=== PATIENT | male | born 1990 | race Caucasian/White ===

== ENCOUNTER 2019-12-30 08:30 | Inpatient (IN) | payer BC ==
[~2019-12-30] VITALS: Ht 182.9 cm; Wt 138.8 kg
--- NOTE | 2019-12-30 08:47 | NUR ---
PT BIB SELF, C/O MID CHEST " DULL " PAIN RADIATING TO BOTH JAWS & LEFT ARM. STARTED YESTERDAY & WOKE UP WITH IT THIS AM @ 0800. PT SEEN & EVAL'D BY DR. GRANT. PLACED ON DATABASE DEVELOPER, SR. WILL CONT TO MONITOR.
[2019-12-30 08:52] LABS: BASOPHILS % (AUTO) 0.4 % (0.0-2.0); EOSINOPHILS % (AUTO) 3.4 % (0.0-6.0); HEMATOCRIT 50 % (39-51); HEMOGLOBIN 17.3 g/dL (13.5-17.5); LYMPHOCYTES % (AUTO) 43.7 % (20.0-44.0); MEAN CORPUSCULAR HGB CONC 35 g/dl (31.0-36.0); MEAN CORPUSCULAR VOLUME 78 fL (80-96); MONOCYTES # (AUTO) 0.9 /CMM (0.1-1.30); MONOCYTES % (AUTO) 7.6 % (2.0-12.0); NEUTROPHILS # (AUTO) 5.1 /CMM (1.8-8.9); NEUTROPHILS % (AUTO) 44.9 % (43.0-81.0); PLATELET COUNT (AUTO) 334 /CMM (150-450); RED BLOOD CELL COUNT(AUTO) 6.35 MIL/uL (4.5-6.0); WHITE BLOOD COUNT (AUTO) 11.4 K/uL (4.3-11.0)
[2019-12-30] MEDS ORDERED: ASPIRIN 81 MG TAB.CHEW PO ONE (09:00)
[2019-12-30] MEDS ORDERED: NITROGLYCERIN 0.4 MG/TAB BOTTLE SL ONE (09:00)
[2019-12-30] MEDS ORDERED: NITROGLYCERIN 0.4 MG/TAB BOTTLE ONE (09:01)
[2019-12-30] MEDS ORDERED: ASPIRIN 81 MG TAB.CHEW ONE (09:01)
--- NOTE | 2019-12-30 09:05 | NUR ---
MEDICATED PER ERMD ORDER, PT MAN WELL.
--- NOTE | 2019-12-30 09:30 | NUR ---
PT RESTING EYES CLOSED, EASILY AWAKEN BY VERBAL STIMULI. PT STS CP 08/27, DR. GRANT AWARE. DENIES SOB, DIZZINESS, N/V AT THIS TIME. WILL CONT TO MONITOR.
[2019-12-30 09:49] LABS: ALBUMIN 3.6 g/dL (3.4-5.0); ALKALINE PHOSPHATASE 71 U/L (46-116); BILIRUBIN,TOTAL 0.3 mg/dL (0.2-1.0); CALCIUM, SERUM 9.6 mg/dL (8.5-10.1); CARBON DIOXIDE 15 mmol/L (21-32); CHLORIDE 103 mmol/L (98-107); CREATININE 0.7 mg/dL (0.6-1.3); GLUCOSE 119 mg/dL (74-106); POTASSIUM 4.2 mmol/L (3.5-5.1); SODIUM SERUM 137 mmol/L (136-145); TOTAL PROTEIN, SERUM 7.7 g/dL (6.4-8.2); UREA NITROGEN, BLOOD 11 mg/dL (7-18)
[2019-12-30 10:07] LABS: ALANINE AMINOTRANSFERASE 72 U/L (12-78)
[2019-12-30 10:08] LABS: ASPARTATE AMINOTRANSFERASE 143 U/L (15-37)
[2019-12-30] MEDS ORDERED: MAG HYDROX/AL HYDROX/SIMETH 30 ML UDC ONE (10:21)
[2019-12-30] MEDS ORDERED: LIDOCAINE VISCOUS 2% UD 15 ML UDC ONE (10:21)
[2019-12-30] MEDS ORDERED: MAG HYDROX/AL HYDROX/SIMETH 30 ML UDC PO ONE (10:30)
[2019-12-30] MEDS ORDERED: LIDOCAINE VISCOUS 2% UD 15 ML UDC MM ONE (10:30)
--- NOTE | 2019-12-30 11:15 | NUR ---
PT SITTING UP, STS CP 3/10 & MAN WELL. WILL CONT TO MONITOR.
[2019-12-30] MEDS ORDERED: IOHEXOL-350 100 ML VIAL IV ONE (12:39)
[2019-12-30] MEDS ORDERED: IV NS 0.9% 250 ML IV ONE (12:40)
--- NOTE | 2019-12-30 13:19 | NUR ---
CALLED JOHANNA KEVIN
--- NOTE | 2019-12-30 14:30 | NUR ---
PT RESTING EYES CLOSED, EASILY AWAKEN BY VERBAL STIMULI. PT STS CP 2/10 & MAN WELL. DENIES SOB, DIZZINESS, JAW, NECK, ARM PAIN @ THIS TIME. TELE NSR, NO ECTOPY NOTED. WILL CONT MONITOR.
[2019-12-30] MEDS ORDERED: NITROGLYCERIN 0.4 MG/TAB BOTTLE SL PRN (16:30)
[2019-12-30] MEDS ORDERED: MORPHINE SULFATE INJ 2 MG/ML DISP.SYRIN IV PRN (16:30)
--- NOTE | 2019-12-30 16:54 | NUR ---
BED 321.
--- NOTE | 2019-12-30 17:03 | NUR ---
REPORT GIVEN TO JUSTIN JOHNSON
--- NOTE | 2019-12-30 17:30 | NUR ---
CALLED DR. SPENCER, REPORTED CRITICAL VALUE: TROPONIN 1.54. PER DR SPENCER TO CALL DR. CABELLO FOR CARDIOLOGY CONSULT.
--- NOTE | 2019-12-30 17:38 | NUR ---
SPOKE TO DR. CABELLO & T.O. TO GIVE FULL DOSE OF LOVENOX. JUSTIN JOHNSON & LAKISHA SALAZAR RN MADE AWARE & PLACED THE ORDER.
[2019-12-30 17:50] VITALS: BP 132/81
[2019-12-30] MEDS: ENOXAPARIN SODIUM 100 MG/ML DISP.SYRIN SQ SCH (18:17)
--- NOTE | 2019-12-30 18:29 | NUR ---
SUPERVISOR BAKERY [employer]ITATION ADMITTING NOTES PT ADMITTED TO UNIT [facility] AT 1740 ACCOMPANIED BY NURSE TY. PT ABLE TO AMBULATE SELF IN STEADY GAIT. A/O X4, ABLE TO MAKE NEEDS KNOWN WITH NO C/O CHEST PAIN OR ANY DISCOMFORTS AT THIS TIME. ORIENTED TO UNIT/ROOM AND VERBALIZED UNDERSTANDING. PT WITH ADMITTING DIAGNOSIS OF CHEST PAIN. ON ROOM AIR, BREATHING EVEN AND UNLABORED. V/S TAKEN, STABLE AND RECORDED. PT NOTED WITH SKIN INTACT. IV ACCESS NOTED ON RFA G#18 INTACT AND PATENT. LUNGS CLEAR ON AUSCULTATION. ABDOMEN SOFT, NON-TENDER WITH POSITIVE BOWELS SOUNDS ON FOUR QUADRANTS. PT PLACED ON TELE-MONITORING WITH CURRENT READING OF SR WITH HR OF 84. SAFETY MEASURES INITIATED: BED PLACED ON LOWEST LOCKED POSITION WITH SIDE-RAILS UP X2. CALL LIGHT PLACED WITHIN EASY REACH OF PT. WILL ENDORSE TO STRICKLER ATTENDANT NURSE FOR CHRISTINE.
--- NOTE | 2019-12-30 19:42 | NUR ---
RN OPENING NOTES PATIENT RECEIVED RESTING IN BED A/O X 4. STABLE ON RA WITH BREATHING EVEN AND UNLABORED, NO SOB NOTED. NO SIGNS OF ACUTE DISTRESS. NO COMPLAINTS OF PAIN OR DISCOMFORT AT THE MOMENT. TELE MONITOR READING SR. TALAMANTES LOCATED ON RFA #18 SL. SAFETY PRECAUTIONS IN PLACE WITH BED IN LOWEST POSITION, CALL LIGHT WITHIN REACH, BREAKS ON, SIDE RAILS UP. WILL CONTINUE TO MONITOR THROUGHOUT THE NIGHT.
[2019-12-30 20:00] VITALS: BP 129/70
--- NOTE | 2019-12-30 21:09 | NUR ---
RN NOTES CONSENT ATTAINED FOR CTA
[2019-12-31] VITALS (13 sets, daily range): BP systolic 118–153; BP diastolic 62–89
--- NOTE | 2019-12-31 02:30 | NUR ---
RN NOTES LAB CALLED, WAS NOTIFIED TROPONIN IS 7.272. MD LAGUNAS NOTIFIED. AWAITING NEW ORDERS.
--- NOTE | 2019-12-31 02:44 | NUR ---
RN NOTES MD LAGUNAS NOTIFIED, NO NEW ORDERS MADE. WILL CONTINUE TO MONITOR. PATIENT RECEIVING LOVENOX 100MG Q12. NO SIGNS OF ACUTE DISTRESS, NO COMPLAINTS OF PAIN OR DISCOMFORT.
[2019-12-31] MEDS: ENOXAPARIN SODIUM 100 MG/ML DISP.SYRIN SQ SCH (05:20)
--- NOTE | 2019-12-31 06:55 | NUR ---
RN CLOSING NOTES PATIENT RESTING IN BED A/O X 4. STABLE ON RA WITH BREATHING EVEN AND UNLABORED, NO SOB NOTED. NO SIGNS OF ACUTE DISTRESS. NO COMPLAINTS OF PAIN OR DISCOMFORT AT THE MOMENT. TELE MONITOR READING . VINITA LOCATED ON RFA #18 SL. SAFETY PRECAUTIONS IN PLACE WITH BED IN LOWEST POSITION, CALL LIGHT WITHIN REACH, BREAKS ON, SIDE RAILS UP. ALL NEEDS ATTENDED TO. PATIENT KEPT NPO THROUGHOUT THE NIGHT. WILL ENDORSE TO ONCOMING SHIFT ABOUT CHRISTINE.
--- NOTE | 2019-12-31 07:34 | NUR ---
RN OPENING NOTES PATIENT IS A/O X 4 AWAKE, WITH NO SIGNS OF DISTRESS AND NO SOB IN ROOM AIR. IV R FA #18G INTACT SL. CURRENTLY NPO. NO COMPLAINTS OF PAIN AT THIS MOMENT. SAFETY MEASURES ARE APPLIED BED IS LOCKED IN LOW POSITION, SIDE RAILS UP X 2 FOR SAFETY. CALL LIGHT WITHIN REACH. WILL CONTINUE TO MONITOR.
[2019-12-31 07:35] LABS: BASOPHILS # (AUTO) 0.1 /CMM (0.0-0.2); BASOPHILS % (AUTO) 0.6 % (0.0-2.0); EOSINOPHILS % (AUTO) 2.1 % (0.0-6.0); HEMATOCRIT 47 % (39-51); HEMOGLOBIN 15.5 g/dL (13.5-17.5); LYMPHOCYTES # (AUTO) 3.3 /CMM (0.8-4.8); LYMPHOCYTES % (AUTO) 28.4 % (20.0-44.0); MEAN CORPUSCULAR HGB CONC 33 g/dl (31.0-36.0); MEAN CORPUSCULAR VOLUME 79 fL (80-96); MONOCYTES # (AUTO) 0.9 /CMM (0.1-1.30); MONOCYTES % (AUTO) 7.5 % (2.0-12.0); NEUTROPHILS # (AUTO) 7.2 /CMM (1.8-8.9); NEUTROPHILS % (AUTO) 61.4 % (43.0-81.0); PLATELET COUNT (AUTO) 281 /CMM (150-450); RED BLOOD CELL COUNT(AUTO) 6.02 MIL/uL (4.5-6.0); WHITE BLOOD COUNT (AUTO) 11.7 K/uL (4.3-11.0)
[2019-12-31 08:47] LABS: CREATININE 0.9 mg/dL (0.6-1.3); PHOSPHORUS 4.7 mg/dL (2.5-4.9); POTASSIUM 3.7 mmol/L (3.5-5.1)
[2019-12-31] MEDS ORDERED: SECONDARY IV SET 1 EA INFUS.SET MC ONE (08:50)
[2019-12-31] MEDS ORDERED: IV NS 0.9% 0 ML ONE (08:50)
[2019-12-31] MEDS ORDERED: IODIXANOL 150 ML IV ONE (08:51)
[2019-12-31] MEDS ORDERED: VERAPAMIL HCL IV 5 MG/2 ML VIAL ONE ×2 (08:52→11:21)
[2019-12-31] MEDS ORDERED: NITROGLYCERIN ICAR 1,000 MCG/10 ML VIAL ICAR ONE ×2 (08:53→11:21)
[2019-12-31] MEDS ORDERED: LIDOCAINE HCL/PF 1% 30 ML SDV ONE ×2 (08:53→11:21)
[2019-12-31] MEDS: ATORVASTATIN 40 MG TABLET PO SCH (09:00)
[2019-12-31] MEDS: ASPIRIN 81 MG TAB.CHEW PO SCH (09:00)
[2019-12-31] MEDS ORDERED: IV NS 0.9% 1,000 ML ONE (11:20)
[2019-12-31] MEDS ORDERED: IV SET PRIMARY PUMP SET 1 EA INFUS.SET MC ONE (11:20)
[2019-12-31] MEDS ORDERED: HEPARIN SODIUM, PORCINE 1,000 UNIT/ML VIAL ONE (11:23)
[2019-12-31] MEDS ORDERED: IV NS 0.9% 50 ML IV ONE (11:24)
[2019-12-31] MEDS ORDERED: FENTANYL PF 100MCG/2ML AMPUL ONE (11:46)
[2019-12-31] MEDS ORDERED: MIDAZOLAM HCL 2 MG/2ML VIAL ONE (11:46)
[2019-12-31] MEDS ORDERED: TIROFIBAN-0.9% SODIUM CHLORIDE 100 ML IV ONE (12:22)
[2019-12-31] MEDS ORDERED: IV NS 0.9% 250 ML IV ONE (12:33)
--- NOTE | 2019-12-31 12:40 | NUR ---
PATIENT VITALS ARE WITHIN NORMAL LIMITS A/O X 4. CONSENT WAS VERIFIED. LEFT TO UNCLAIMED PROPERTY MANAGER FOR PROCEDURE VIA [employer].
[2019-12-31] MEDS: TIROFIBAN IV SCH ×2 (13:15→22:13)
[2019-12-31] MEDS: SODIUM CHLORIDE IV SCH ×2 (13:15→22:13)
[2019-12-31] MEDS: [UNRECOGNIZED DRUG - OTHER] IV SCH ×2 (13:15→22:13)
--- NOTE | 2019-12-31 13:26 | NUR ---
INGREDIENT HANDLER NOTE RECEIVED REPORT FROM SUMATRA OPENER NURSE RAGHU. RECEIVED PATIENT VIA BED. PATIENT A/OX4, DENIES SOB, DENIES CHEST PAIN AT THIS TIME. ON ROOM AIR. SKIN WARM AND DRY TO TOUCH. PATIENT S/P CORONARY ANGIOGRAM WITH RIGHT WRIST TR BAND. PATIENT ABLE TO MOVE FINGERS, CAPILLARY REFILL PRESENT. DENIES PAIN OR NUMBNESS IN THE AREA. PATIENT RECEIVING AGGRASTAT DRIP AT 18ML/HR. ON TELE MONITOR SR. PER REPORT PATIENT IS BEING TRANSFERRED TO [facility] [place], KEEP AGGRASTAT RUNNING FOR 18HRS AND LEAVE TR BAND ON. PATIENT IS NPO. BELONGINGS BROUGHT TO PATIENT FROM 3W. PATIENT AWARE OF PLAN. ORIENTED TO ROOM AND CALL LIGHT SYSTEM, PATIENT IS APPRECIATIVE AND VERBALIZED UNDERSTANDING. SIDE RAILS UP AND LOCKED. BED KEPT AT LOWEST POSITION. CALL LIGHT KEPT IN HAND. WILL CONTINUE TO MONITOR.
--- NOTE | 2019-12-31 13:42 | NUR ---
PATIENT GOT TRANSFERRED TO ICU AFTER PROCEDURE.
--- NOTE | 2019-12-31 13:56 | NUR ---
HEAVY EQUIPMENT ENGINE MECHANIC NOTE RECEIVED CALL FROM DR BLANCHARD, RECEIVED TELEPHONE ORDER TO CONTINUE PATIENT ON AGGRASTAT DRIP, START DEFLATING TR BAND AT 1530 AND START HEPARIN DRIP PER [facility] PROTOCOL ONE HOUR AFTER TR BAND HAS BEEN REMOVED AND THERE IS NO BLEEDING OR COMPLICATIONS. D/C LOVENOX. NOTED, WILL CONTINUE TO MONITOR.
[2019-12-31] MEDS ORDERED: SODIUM CHLORIDE IV ONE (13:57)
[2019-12-31] MEDS ORDERED: TIROFIBAN IV ONE (13:57)
--- NOTE | 2019-12-31 15:58 | NUR ---
ROBOTIC MACHINE OPERATOR NOTE RECEIVED CALL FROM PHARMACY REGARDING AGGRASTAT RATE, PER PHARMACY MEDICATION SHOULD BE RUNNING AT 25ML/HR BASED ON PATIENT WEIGHT, INFORMED THERE IS A HARD STOP ON THE PUMP PREVENTING ME FROM RUNNING MORE THAT 18ML/HR. PER DEVIN RESTART PUMP AND RUN BASIC INFUSION AND INFUSE MEDICATION AT 25ML/HR. NOTED
[2019-12-31] MEDS ORDERED: HEPARIN SODIUM, PORCINE 5000 UNITS/1 ML VIAL SQ ONE (17:16)
--- NOTE | 2019-12-31 18:13 | NUR ---
CARE ATTENDANT NOTE SPOKE WITH CASE MANAGEMENT GEORGETTE REGARDING PATIENTS TRANSFER. PER GEORGETTE, DR NEWMAN WONT BE ABLE TO DO THE PROCEDURE UNTIL SATURDAY. PATIENT WILL NOT BE TRANSFERRED TODAY. RELAYED TO DR BLANCHARD REGARDING UPDATE, PER OK FOR PATIENT TO EAT.
--- NOTE | 2019-12-31 19:20 | NUR ---
RN OPENING NOTES: PATIENT IS AAOX4. NO ACUTE DISTRESS AT THIS TIME. DENIES CHEST PAIN. PER AM RN, LAB FOR PTT WILL BE DRAWN STAT FOR HEPARIN DRIP. ON AGGRASTAT DRIP X 18 HRS, STARTED AROUND 1300. NO S/S OF BLEEDING AT THIS TIME. ON BEDSIDE MONITOR; NSR, HR 80-90s. PATIENT HAS RIHGT FA G18 AND LEFT WRIST G20; BOTH IV SITES ARE CLEAN, DRY, AND INTACT; FLUSHING WELL. S/P CARDIAC CATH. PATIENT IS BLADDER/BOWEL CONTINENT AND USES URINAL. CALL LIGHT WITHIN REACH. WILL CONT. TO MONITOR.
--- NOTE | 2019-12-31 19:24 | NUR ---
CIRCUIT BOARD DRAFTER NOTE INFORMED BRISEYDA REGARDING PTT RESULTS, PER BRISEYDA REPEAT PTT AT 8PM. PER PHARMACY IF LEVELS ARE LOWER OK TO START HEPARIN DRIP. PM NURSE INFORMED.
--- NOTE | 2019-12-31 19:36 | NUR ---
DIE PRESSER NOTE RECEIVED CALL FROM PHARMACY REQUESTING TO HAVE PTT, PT/INR DRAWN STAT INSTEAD. PM NURSE AWARE.
--- NOTE | 2019-12-31 20:06 | NUR ---
RN NOTE: SPOKE WITH BRISEYDA FROM PHARMACY AND ASKED TO DELIVER AGGRASTAT MEDICATION.
[2019-12-31] MEDS: HEPARIN INFUSION/D5W 500 ML IV PRN (20:40)
[2019-12-31 21:00] LABS: BASOPHILS # (AUTO) 0.1 /CMM (0.0-0.2); BASOPHILS % (AUTO) 0.6 % (0.0-2.0); EOSINOPHILS % (AUTO) 1.6 % (0.0-6.0); HEMATOCRIT 46 % (39-51); HEMOGLOBIN 15.2 g/dL (13.5-17.5); LYMPHOCYTES # (AUTO) 2.9 /CMM (0.8-4.8); LYMPHOCYTES % (AUTO) 22.8 % (20.0-44.0); MEAN CORPUSCULAR HGB CONC 33 g/dl (31.0-36.0); MEAN CORPUSCULAR VOLUME 78 fL (80-96); MONOCYTES # (AUTO) 0.8 /CMM (0.1-1.30); MONOCYTES % (AUTO) 6.2 % (2.0-12.0); NEUTROPHILS # (AUTO) 8.8 /CMM (1.8-8.9); NEUTROPHILS % (AUTO) 68.8 % (43.0-81.0); PLATELET COUNT (AUTO) 281 /CMM (150-450); RED BLOOD CELL COUNT(AUTO) 5.96 MIL/uL (4.5-6.0); WHITE BLOOD COUNT (AUTO) 12.8 K/uL (4.3-11.0)
--- NOTE | 2019-12-31 21:32 | NUR ---
RN NOTE: PTT RESULT RECEIVED; 32.5. HEPARIN BOLUS WAS ALREADY GIVEN BY AM RN. PHARMACIST BRISEYDA AWARE. PER BRISEYDA, START PATIENT ON HEPARIN DRIP AT ONLY 1000 UNITS/HR MAX DUE TO PATIENT IS HIGH RISK FOR BLEEDING; PATIENT ALSO ON AGGRASTAT DRIP. CHARGE NURSE AWARE. NO S/S OF BLEEDING. WILL CONT. TO MONITOR. Addendum: 12/31/19 at 2139 by IRENA CONLEY RN AT 2013: PER BRISEYDA (PHARMACIST), PLATELET NEEDS TO BE CHECKED AFTER AGGRASTAT DRIP WAS STARTED. CBC STAT ORDERED. AT 2100: PLATELET LEVEL RECEIVED; 281 WNL. NO SIGNS OF BLEEDING. CHARGE NURSE AWARE. WILL CONT. TO MONITOR.
--- NOTE | 2019-12-31 22:12 | NUR ---
RN NOTE: PATIENT C/O 2/10 MILD HEADACHE; NOTIFIED JANNETH HEADING PINNER AND RECEIVED AN ORDER FOR TYLENOL 650 MG Q6H PRN. WILL REASSESS PATIENT. AT 2230, PATIENT ASLEEP AT THIS TIME. NO DISTRESS NOTED. AT 2300, ASKED PATIENT IF HE STILL NEEDS TYLENOL; PATIENT STATED, "I'M GOOD RIGHT NOW." ENCOURAGED PATIENT TO LET ME KNOW IF HE GETS A HEADACHE AGAIN. WILL CONT. TO MONITOR.
[2019-12-31] MEDS ORDERED: ACETAMINOPHEN 325 MG TABLET PO PRN (23:00)
[2020-01-01] VITALS (25 sets, daily range): BP systolic 96–146; BP diastolic 52–94
[2020-01-01 03:04] LABS: BASOPHILS # (AUTO) 0.1 /CMM (0.0-0.2); BASOPHILS % (AUTO) 1.1 % (0.0-2.0); EOSINOPHILS % (AUTO) 2.1 % (0.0-6.0); HEMATOCRIT 46 % (39-51); LYMPHOCYTES # (AUTO) 3.3 /CMM (0.8-4.8); LYMPHOCYTES % (AUTO) 26.9 % (20.0-44.0); MEAN CORPUSCULAR HGB CONC 33 g/dl (31.0-36.0); MEAN CORPUSCULAR VOLUME 78 fL (80-96); MONOCYTES # (AUTO) 0.9 /CMM (0.1-1.30); MONOCYTES % (AUTO) 7.3 % (2.0-12.0); NEUTROPHILS # (AUTO) 7.6 /CMM (1.8-8.9); NEUTROPHILS % (AUTO) 62.6 % (43.0-81.0); PLATELET COUNT (AUTO) 282 /CMM (150-450); RED BLOOD CELL COUNT(AUTO) 5.83 MIL/uL (4.5-6.0); WHITE BLOOD COUNT (AUTO) 12.2 K/uL (4.3-11.0)
--- NOTE | 2020-01-01 03:32 | NUR ---
RN NOTE: BLOOD DRAWN FOR PTT; RESULT STILL PENDING. WILL CONT. TO MONITOR.
--- NOTE | 2020-01-01 04:00 | NUR ---
RN NOTE: RECEIVED PTT RESULT; 30.2. CLARIFIED WITH VISH (PHARMACIST) IF PATIENT'S MAX DOSE SHOULD ONLY BE 1000 UNITS/HR. ALSO MADE AWARE THAT PATIENT IS STILL ON AGGRASTAT DRIP. PER PHARMACIST, OK TO FOLLOW PROTOCOL THIS TIME BASED ON PTT RESULT. WILL GIVE BOLUS 6,000 UNITS AND TITRATE IT UP BY 300 UNITS/HR. WILL CONT. TO MONITOR. Addendum: 01/01/20 at 0410 by IRENA CONLEY RN PTT 30.6, NOT 30.2.
[2020-01-01] MEDS: HEPARIN SODIUM, PORCINE 5000 UNITS/1 ML VIAL IV ONE ×2 (04:28→04:33)
[2020-01-01 04:38] LABS: ALBUMIN 3.4 g/dL (3.4-5.0); BILIRUBIN,TOTAL 0.6 mg/dL (0.2-1.0); CALCIUM, SERUM 8.6 mg/dL (8.5-10.1); CREATININE 0.9 mg/dL (0.6-1.3); MAGNESIUM 2.2 mg/dL (1.8-2.4); PHOSPHORUS 4.3 mg/dL (2.5-4.9); POTASSIUM 4.4 mmol/L (3.5-5.1); TOTAL PROTEIN, SERUM 7.8 g/dL (6.4-8.2)
--- NOTE | 2020-01-01 06:52 | NUR ---
RN CLOSING NOTES: PATIENT ASLEEP BUT EASILY AROUSABLE. NO RESPIRATORY DISTRESS. NO C/O PAIN. NO ACTIVE BLEEDING NOTED. CONT. ON HEPARIN DRIP AT 1300 UNITS/HR PER [facility] PROTOCOL. WILL TURN OFF AGGRASTAT DRIP AFTER 18 HRS FROM WHEN IT WAS STARTED (AT 0715). IN STABLE CONDITION AT THIS TIME. ENDORSE TO AM RN FOR CONTINUITY OF CARE. Addendum: 01/01/20 at 0722 by IRENA CONLEY RN AGGRASTAT DRIP TURNED OFF AFTER 18 HRS. ENDORSED TO AM RN FOR CONTINUITY OF CARE.
--- NOTE | 2020-01-01 07:30 | NUR ---
RN NOTES RECEIVED PATIENT AWAKE, ORIENTED X4, ABLE TO MAKE NEEDS KNOWN. NOT ON ANY FORM OF DISTRESS. BREATHING UNLABORED. WITH O2 AT 2 LPM VIA NASAL CANNULA, SATING 100% BUT PATIENT HAVE REQUESTED IT OFF AT THIS TIME. SINUS RHYTHM ON THE MONITOR WITH HR ON THE 90s. IV ON THE R FA G [address], INTACT WITH ONGOING HEPARIN DRIP AY 1300UNITS/HR. G 20 ON THE L WRIST IN PLACE. DRESSING INTACT, SALINE LOCK. PATIENT ENCOURAGE TO CALL FOR HELP/ASSISTANCE. CALL LIGHT PLACED WITHIN REACH. NO INDICATION OF ACTIVE BLEEDING NOTED AT THIS TIME SAFETY MEASURES OBSERVED AND MAINTAINED. WILL CONTINUE TO MONITOR PATIENT CLOSELY
[2020-01-01] MEDS: ASPIRIN 81 MG TAB.CHEW PO SCH (08:15)
[2020-01-01] MEDS: ATORVASTATIN 40 MG TABLET PO SCH (08:15)
[2020-01-01] MEDS: Fenofibrate 48 MG TABLET PO SCH ×2 (09:49→10:16)
--- NOTE | 2020-01-01 10:50 | NUR ---
RN NOTES PATIENT PTT CAME AT 26.3. GIVEN 6000 UNITS IV BOLUS OF HEPARIN AND INCREASE DRIP TO ANOTHER 300UNITS. DRIP NOW RUNNING AT 1600 UNITS/HR. WILL CONTINUE TO MONITOR PATIENT ACCORDINGLY
[2020-01-01] MEDS ORDERED: HEPARIN SODIUM,PORCINE/PF 50 UNIT/5 ML DISP.SYRIN IV ONE (11:00)
[2020-01-01] MEDS ORDERED: HEPARIN SODIUM, PORCINE 5000 UNITS/1 ML VIAL IV ONE ×2 (11:30→19:00)
[2020-01-01] MEDS ORDERED: HEPARIN SODIUM, PORCINE 5000 UNITS/1 ML VIAL SQ ONE (11:30)
[2020-01-01] MEDS: HEPARIN INFUSION/D5W 500 ML IV PRN (16:48)
--- NOTE | 2020-01-01 18:40 | NUR ---
N NOTES PATIENT PTT CAME AT 32.9. GIVEN 6000 UNITS IV BOLUS OF HEPARIN AND INCREASE DRIP TO ANOTHER 300UNITS/HR. DRIP NOW RUNNING AT 1900 UNITS/HR. WILL CONTINUE TO MONITOR PATIENT ACCORDINGLY
--- NOTE | 2020-01-01 19:45 | NUR ---
ICU/CASH PROCESSOR RECEIVED REPORT FROM DAY NURSE. SEE FLOWSHEET FOR ASSESSMENT, THERE IS NO SKIN ISSUES WHICH NEED TO BE ADDRESSED . PT ALERT AND ORT X4. PT IS ON ROOM AIR, PT IS TOLERATING THIS WELL WITH SATURATION AT 99%. PT TURNS SELF AND REPOSITIONS SELF FOR COMFORT AND CARE. WILL CONTINUE TO MONITOR THIS PT, NO ACUTE DISTRESS SEEN.
--- NOTE | 2020-01-01 19:55 | NUR ---
ICU/GRAVEL INSPECTOR PT IS CURRENTLY ON A HEPARIN DRIP FOR 3 OCCLUSION VESICLES, PT REQUIRES STENT PLACEMENT. PT IS TO BE TRANSFER TO ANOTHER HOSPITAL FOR HIGHER LEVEL OF CARE.
--- NOTE | 2020-01-01 22:00 | NUR ---
ICU/CHEESE PRODUCTION SUPERVISOR PT UP TO BATHROOM WITH ASST. PT HAD A LARGE BM WITH URINE. PT ASST. BACK TO BED. NO ACUTE DISTRESS SEEN. CALL LIGHT WITHIN REACH.
[2020-01-02] VITALS (24 sets, daily range): BP systolic 104–142; BP diastolic 62–84
--- NOTE | 2020-01-02 01:00 | NUR ---
ICU/ANIMAL LABORATORY TECHNICIAN LAB CAME TO DO PTT, PT FOR HEPARIN DRIP. AWAIT FOR RESULTS TO ADJUST DRIP.
--- NOTE | 2020-01-02 02:54 | NUR ---
ICU/SHINGLE CUTTER PTT CAME BACK AT 35.6, CHARGE NURSE WAS NOTIFIED ABOUT THIS. PER THE WEIGHT BASED HEPARIN CHART THE DRIP WAS INCREASED TO 200 UNITS/HOUR. NEXT PTT BLOOD DRAW WILL BE AT 0900. NO SIGNS OR SYMPTOMS OF ANY BLEEDING.
[2020-01-02] MEDS: HEPARIN INFUSION/D5W 500 ML IV PRN ×2 (04:39→16:58)
[2020-01-02 07:53] LABS: BASOPHILS # (AUTO) 0.1 /CMM (0.0-0.2); BASOPHILS % (AUTO) 0.6 % (0.0-2.0); EOSINOPHILS % (AUTO) 2.8 % (0.0-6.0); HEMATOCRIT 47 % (39-51); HEMOGLOBIN 14.9 g/dL (13.5-17.5); LYMPHOCYTES # (AUTO) 2.9 /CMM (0.8-4.8); LYMPHOCYTES % (AUTO) 25.4 % (20.0-44.0); MEAN CORPUSCULAR HGB CONC 32 g/dl (31.0-36.0); MEAN CORPUSCULAR VOLUME 79 fL (80-96); MONOCYTES # (AUTO) 0.6 /CMM (0.1-1.30); NEUTROPHILS # (AUTO) 7.5 /CMM (1.8-8.9); NEUTROPHILS % (AUTO) 66.2 % (43.0-81.0); PLATELET COUNT (AUTO) 268 /CMM (150-450); RED BLOOD CELL COUNT(AUTO) 5.95 MIL/uL (4.5-6.0); WHITE BLOOD COUNT (AUTO) 11.4 K/uL (4.3-11.0)
[2020-01-02] MEDS: ASPIRIN 81 MG TAB.CHEW PO SCH (09:03)
[2020-01-02] MEDS: Fenofibrate 48 MG TABLET PO SCH (09:03)
[2020-01-02] MEDS: ATORVASTATIN 40 MG TABLET PO SCH (09:03)
[2020-01-02 10:54] LABS: CALCIUM, SERUM 8.6 mg/dL (8.5-10.1); CREATININE 1.1 mg/dL (0.6-1.3); POTASSIUM 4.1 mmol/L (3.5-5.1)
--- NOTE | 2020-01-02 11:00 | NUR ---
RN NOTES FOLLOWED UP WITH LABORATORY REGARDING PTT THAT SHOULD BEEN DRAWN AT 0900 AM BUT WAS RESULTED WITH BLOOD THAT WAS DRAWN AT 0400 AM. REQUESTED ANOTHER BLOOD DRAW AT THIS TIME
--- NOTE | 2020-01-02 11:57 | NUR ---
RN NOTES RESULT FOR PTT CAME AT 36.6, PER PROTOCOL HEPARIN DRIP SHOULD BE INCREASE WITH 200 UNITS MORE. HEPARIN DRIP NOW RUNNING AT 2300 UNITS/HR FROM 2100 UNITS/HR. WILL CONTINUE TO MONITOR PATIENT ACCORDINGLY
--- NOTE | 2020-01-02 19:08 | NUR ---
RN NOTES RESULT FOR PTT CAME AT 37.4 PER PROTOCOL HEPARIN DRIP SHOULD BE INCREASE WITH 200 UNITS MORE. HEPARIN DRIP NOW RUNNING AT 2500 UNITS/HR FROM 2300 UNITS/HR. WILL CONTINUE TO MONITOR PATIENT ACCORDINGLY
--- NOTE | 2020-01-02 19:40 | NUR ---
ICU/SUPERVISOR BIT AND SHANK DEPARTMENT RECEIVED REPORT FROM DAY NURSE. SEE FLOWSHEET FOR ASSESSMENT, THERE IS NO SKIN ISSUES WHICH NEED TO BE ADDRESSED . PT ALERT AND ORT X4. PT IS ON ROOM AIR, PT IS TOLERATING THIS WELL WITH SATURATION AT 99%. PT TURNS SELF AND REPOSITIONS SELF FOR COMFORT AND CARE. WILL CONTINUE TO MONITOR THIS PT, NO ACUTE DISTRESS SEEN.
--- NOTE | 2020-01-02 20:00 | NUR ---
ICU/POLITICAL RESEARCHER PT IS CURRENTLY ON A HEPARIN DRIP FOR 3 OCCLUSION VESICLES, PT REQUIRES STENT PLACEMENT. PT IS TO BE TRANSFER TO ANOTHER HOSPITAL FOR HIGHER LEVEL OF CARE. AWAIT FOR INSURANCE APPROVAL. HEPARIN SITE REMAINS GOOD, WITH NO REDNESS OR SWELLING AT SIGHT. AND NO SIGNS OF ACTIVE BLEEDING SEEN. PT WAS TAUGHT ABOUT SIGNS AND SYMPTOMS OF BLEEDING.
--- NOTE | 2020-01-02 23:00 | NUR ---
ICU/HARBOR PILOT PT UP TO BATHROOM WITH ASST. PT HAD A LARGE BM WITH URINE. PT AT THIS TIME WAS ABLE TO GIVE SELF BATH, THEN BEDDING CHANGED. PT BACK TO BED, CALL LIGHT WITHIN REACH. NO ACUTE DISTRESS SEEN. WILL CONTINUE TO MONITOR THIS PT.
[2020-01-03] VITALS (26 sets, daily range): BP systolic 84–136; BP diastolic 53–89
--- NOTE | 2020-01-03 01:00 | NUR ---
ICU/WAFER CLEANER LAB CAME TO DO PTT, FOR HEPARIN DRIP. AWAIT FOR RESULTS TO ADJUST HEPARIN DRIP.
--- NOTE | 2020-01-03 02:30 | NUR ---
ICU/MOTOR AND CHASSIS INSPECTOR PTT CAME BACK AT 42.3, CHARGE NURSE WAS NOTIFIED ABOUT THIS. PER THE WEIGHT BASED HEPARIN CHART THE DRIP WAS INCREASED TO 200 UNITS/HOUR. NEXT PTT BLOOD DRAW WILL BE AT 0800. NO SIGNS OR SYMPTOMS OF ANY BLEEDING SEEN AT THIS TIME.
[2020-01-03] MEDS: HEPARIN INFUSION/D5W 500 ML IV PRN ×3 (02:32→22:56)
--- NOTE | 2020-01-03 04:50 | NUR ---
ICU/COPY OPERATOR PT'S MOTHER CALLED ASKED ABOUT PLAN OF CARE, PT HAD VERBALLY GIVEN THE OK TO GIVE THIS TO THE MOTHER. MOTHER WAS INFORMED ABOUT THIS, SAID OK. NO FURTHER QUESTIONS AT THIS TIME.
[2020-01-03 04:56] LABS: BASOPHILS # (AUTO) 0.1 /CMM (0.0-0.2); BASOPHILS % (AUTO) 0.8 % (0.0-2.0); EOSINOPHILS % (AUTO) 4.6 % (0.0-6.0); HEMATOCRIT 46 % (39-51); HEMOGLOBIN 15.1 g/dL (13.5-17.5); LYMPHOCYTES # (AUTO) 2.4 /CMM (0.8-4.8); LYMPHOCYTES % (AUTO) 26.3 % (20.0-44.0); MEAN CORPUSCULAR HGB CONC 33 g/dl (31.0-36.0); MEAN CORPUSCULAR VOLUME 78 fL (80-96); MONOCYTES # (AUTO) 0.5 /CMM (0.1-1.30); MONOCYTES % (AUTO) 5.1 % (2.0-12.0); NEUTROPHILS # (AUTO) 5.8 /CMM (1.8-8.9); NEUTROPHILS % (AUTO) 63.2 % (43.0-81.0); PLATELET COUNT (AUTO) 245 /CMM (150-450); WHITE BLOOD COUNT (AUTO) 9.1 K/uL (4.3-11.0)
[2020-01-03 05:36] LABS: CALCIUM, SERUM 9.1 mg/dL (8.5-10.1); CREATININE 1.1 mg/dL (0.6-1.3); POTASSIUM 3.9 mmol/L (3.5-5.1)
--- NOTE | 2020-01-03 08:00 | NUR ---
RN NOTES PTT RESULT CAME AT 56.7, NO CHANGES ON THE HEPARIN DRIP PER PROTOCOL. WILL CONTINUE TO MONITOR PATIENT ACCORDINGLY
[2020-01-03] MEDS: ATORVASTATIN 40 MG TABLET PO SCH (08:20)
[2020-01-03] MEDS: ASPIRIN 81 MG TAB.CHEW PO SCH (08:20)
--- NOTE | 2020-01-03 14:00 | NUR ---
RN NOTES PTT CAME AT 50.6, NO CHANGES TO BE MADE PER PROTOCOL
[2020-01-04] VITALS (19 sets, daily range): BP systolic 82–136; BP diastolic 44–79
--- NOTE | 2020-01-04 00:48 | NUR ---
PATIENT NPO AT MIDNIGHT BECAUSE HE MAY GO TO HIGHER LEVEL OF CARE FOR STENT PLACEMENT IN AM. WILL FOLLOW UP IN THE AM.
[2020-01-04] MEDS: ATORVASTATIN 40 MG TABLET PO SCH (08:54)
[2020-01-04] MEDS: ASPIRIN 81 MG TAB.CHEW PO SCH (08:54)
[2020-01-04] MEDS: Fenofibrate 48 MG TABLET PO SCH (09:31)
--- NOTE | 2020-01-04 16:45 | NUR ---
TELE/RN NOTE THE PATIENT IS RECEIVED FROM ICU. ALERT AND ORIENTED X4. DENIES PAIN. IN ROOM AIR AND DENIES SOB. RESPIRATION REGULAR AND UNLABORED. THE PATIENT IS IN NO APPARENT DISTRESS. RFA G 18 PATENT AND SALINE LOCKED LEFT WRIST G 20 PATENT AND HEPARIN INFUSING AT 54ML/HR. NO S/S BLEEDING NOTED. BED LOW AND LOCKED. SIDE RAILS UP X3. CALL LIGHT WITHIN REACH. WILL CONTINUE TO MONITOR.
[2020-01-04] MEDS: HEPARIN INFUSION/D5W 500 ML IV PRN (19:14)
--- NOTE | 2020-01-04 19:20 | NUR ---
TELE/RN NOTE THE PATIENT IS ALERT AND ORIENTED X4. DENIES PAIN. IN ROOM AIR AND OXYGEN SATURATION IS AT 97%. DENIES SOB. RESPIRATION REGULAR AND UNLABORED. RFA G 18 PATENT AND HEPARIN INFUSING PER ORDER. NO S/S INFILTRATION NOTED. LEFT WRIST G 20 PATENT AND SALINE LOCKED. NO S/S BLEEDING NOTED. BED LOW AND LOCKED. SIDE RAILS UP X3. CALL LIGHT WITHIN REACH. WILL ENDORSE TO NIGHTS SHIFT.
--- NOTE | 2020-01-04 19:30 | NUR ---
FONDANT PUFF MAKER OPEN NOTES PATIENT IS EATING DINNER RIGHT NOW. A/O X4. ON RA, NO SOB/ ACUTE RESPIRATORY DISTRESS NOTED. HEPARIN IS CURRENTLY INFUSING @ 54MLS/HR. APPEARS COMFORTABLE/ NO COMPLAINTS OF PAIN AT THE MOMENT. BED IS IN LOWEST LOCKED POSITION WITH SIDE RAILS UP X2, SEMI FOWLERS. CALL LIGHT IS WITHIN REACH. WILL CONTINUE TO MONITOR.
[2020-01-05] VITALS: BP 120/69
[2020-01-05 02:57] VITALS: BP 120/69
[2020-01-05 04:00] VITALS: BP 103/51
[2020-01-05] MEDS: HEPARIN INFUSION/D5W 500 ML IV PRN (05:56)
--- NOTE | 2020-01-05 06:34 | NUR ---
AWAKE OVERNIGHT COUNSELOR CLOSE NOTES PATIENT IS SLEEPING. A/O X4. ON RA, NO SOB/ ACUTE RESPIRATORY DISTRESS NOTED. IV IN L WRIST #20G IS PATENT AND INTACT RUNNING HEPARIN @54MLS/HR. NO S/S OF BLEEDING. APPEARS COMFORTABLE/ NO COMPLAINTS OF PAIN AT THE MOMENT. BED IS IN LOWEST LOCKED POSITION WITH SIDE RAILS UP X3, SEMI FOWLERS. CALL LIGHT IS WITHIN REACH. WILL ENDORSE TO AM NURSE.
--- NOTE | 2020-01-05 07:17 | NUR ---
CARE PROVIDER NOTES PATIENT RECEIVED IN BED SLEEPING, EASILY AWAKEN BY NAME, ALERT AND ORIENTED X 4. ON ROOM AIR WITH NO SIGNS OF RESPIRATORY DISTRESS, WITH NON-LABORED BREATHING, AND NO SOB NOTED AT THIS TIME. ON CERTIFIED WELDING INSPECTOR NORMAL SINUS RHYTHM, 62. PATIENT SKIN WARM AND DRY TO TOUCH. IV ACCESS INTACT AND PATENT. PATIENT PRESENTS WITH NO PAIN OR DISCOMFORT AT THIS TIME. SAFETY PRECAUTIONS IMPLEMENTED WITH BED LOCKED, BED IN THE LOWEST POSITION, BILATERAL SIDE RAILS UP, AND CALL LIGHT WITHIN EASY REACH OF THE PATIENT. WILL CONTINUE TO MONITOR PATIENT.
[2020-01-05 08:00] VITALS: BP 105/64
[2020-01-05] MEDS: ASPIRIN 81 MG TAB.CHEW PO SCH (08:07)
[2020-01-05] MEDS: ATORVASTATIN 40 MG TABLET PO SCH (08:08)
[2020-01-05] MEDS: Fenofibrate 48 MG TABLET PO SCH (08:08)
[2020-01-05] MEDS ORDERED: HEPARIN SODIUM,PORCINE/PF 50 UNIT/5 ML DISP.SYRIN IV ONE (12:30)
--- NOTE | 2020-01-05 12:37 | NUR ---
MS RN NOTES CALLED [facility] FOR REPORT. SPOKE WITH JUSTIN DUQUE .
--- NOTE | 2020-01-05 13:12 | NUR ---
MS RN NOTES SPOKE WITH DR CABELLO TO CLARIFY ABOUT THE ORDER OF HEPARIN, 3,000 UNITS, STATED IT WAS NOT NEEDED. INFORMED ABOUT aPTT LEVELS OF 41.7, STATED PATIENT WILL CONTINUE WITH HEPARIN DRIP WHEN ARRIVED TO [facility].
--- NOTE | 2020-01-05 13:30 | NUR ---
MS RN NOTES PATIENT ALERT AND ORIENTED X 4. ON ROOM AIR WITH NO SIGNS OF RESPIRATORY DISTRESS, WITH NON-LABORED BREATHING. VITAL SIGNS STABLE. PATIENT IV ACCESS REMAINS INTACT AND PATENT LEFT BECAUSE PATIENT TRANSFERRING TO HIGHER LEVEL OF CARE. ID BAND REMOVED. ALL BELONGINGS ACCOUNTED FOR BY PATIENT. EXIT CARE AND EDUCATED PROVIDED TO PATIENT. PATIENT LEFT THE UNIT VIA GURNEY WITH EMT.
== END 2020-01-05 13:30 | disposition short-term general hospital (02) | DRG 281 ==
LOC: ER 08:30 → TELE 17:17 → ICU 12-31 13:21 → TELE 01-04 16:52 → MED 01-05 10:12
PROVIDERS: ADMIT Internal Medicine; ATTEND Nurse Practitioner Acute Care
DX: I21.4 Non-ST elevation (NSTEMI) myocardial infarction (principal); Z68.41 Body mass index [BMI] 40.0-44.9, adult; K76.0 Fatty (change of) liver, not elsewhere classified; E66.01 Morbid (severe) obesity due to excess calories; I25.10 Atherosclerotic heart disease of native coronary artery without angina pectoris; I10 Essential (primary) hypertension; E78.1 Pure hyperglyceridemia; Z98.61 Coronary angioplasty status; R16.1 Splenomegaly, not elsewhere classified; Z82.49 Family history of ischemic heart disease and other diseases of the circulatory system
CPT/HCPCS: 36415; 71045-TC; 80048-TC; 80053-TC; 80061-TC; 80076-TC; 80305; 83690-TC; 83735-TC; 84100-TC; 84484-TC; 85025-TC; 85378-TC; 85610-TC; 85730-TC; 87081-TC; 93307-TC; A4216; C1887; C9803-CS; G0378; G0500; J1642; J1644; J1650; J2250; J3010; J3490; J7050; Q9967